=== PATIENT | female | born 1940 | race Caucasian/White ===

== ENCOUNTER 2018-10-18 17:28 | Emergency (ER) | payer MEDICARE ==
--- OUTSIDE RECORDS SUMMARY | 2018-10-18 17:54 | XMS REPORT | Continuity of Care Document ---
:1940 External Reference #:[id number] Author Name Nancy Ruiz Care Team Providers Name Role Phone Shivani Mahmood MD Primary Care Physician Unavailable Payers Date Identification Numbers Payment Provider Subscriber Effective: 2006 Policy Number: [id number] Medicare Marissa Mejias PayID: [id number] [address] [place] [address] Policy Number: [id number] [facility] Marissa Mejias Group Name: MX Supplement [address] PayID: [id number] [place] [address] Problems Active Problems Provider Date Rheumatoid arthritis Eugene Helm M.D. Onset: 01/15/2012 Medications [employer] (Current) Use Encounter Eugene Helm M.D. Onset: Taking medication MAD[address] Lane Onset: 05/08/2014 Rheumatoid arthritis of multiple joints MADELA[address] Lane Onset: 04/12/2015 Social History Type Date Description Comments Sex Unknown Tobacco Use Start: Unknown current cigarette smoker Smoking Status Reviewed: 09/24/18 current cigarette smoker ETOH Use Denies alcohol use Tobacco Use Start: Unknown Patient is a current smoker, smokes every day Allergies, Adverse Reactions, Alerts Active Allergies Reaction Severity Comments Date Penicillin 07/14/2010 Medications Active Medications SIG Qnty Indications Ordering Date Provider Cetirizine HCL Take One Tablet By 30tabs T78.40xA Issa Figueroa, 2016 Mouth Once Daily In PHYSICIAN EXECUTIVE 10mg Tablets The Evening Folic Acid 1 by mouth every day 90tabs Z79.899 Issa Figueroa, 01/20/2015 1mg PHYSICIAN EXECUTIVE Tablets Enbrel Sureclick inject 1 pen (50 mg) 3.92units Z79.899 Issa Bloomk, 03/2015 subcutaneously once PHYSICIAN EXECUTIVE 50mg/ml Solution every other week Auto-Inject M06.89 Methotrexate take 6 tablets by 72tabs M06.89 [facility], PHYSICIAN EXECUTIVE 01/01/2015 2.5mg Tablets mouth every week Z79.899 Hydrocodone-Acetaminophen 1 tab by 60tabs M06.89 [facility], 08/12/2014 5-325mg Tablets mouth two PHYSICIAN EXECUTIVE times daily as needed for pain M54.5 Arabella [employer] C[employer] 2 tbls in water [facility] Henry, 08/11/2014 Vinegar daily PHYSICIAN EXECUTIVE Fluticasone Propionate Use One [place](S) 16units J30.9 [facility] 50mcg/Act In Each Nostril PHYSICIAN EXECUTIVE Suspension Once Daily as Needed Voltaren apply 5 grams 5tubes M06.89 [facility] 10/23/2011 1% Gel topically four PHYSICIAN EXECUTIVE times a day Amlodipine Besylate once daily Blegen, 5mg Tablets MD Shivani Metamucil Free & Natural 1 tablespoon twice Unknown Powder a day mixed w/ water Hydroxychloroquine Sulfate take one tablet by 180tabs M06.89 [facility] , 200mg mouth twice daily PHYSICIAN EXECUTIVE Tablets Z79.899 [place] 3 1 po qd. 30caps Unknown 1000mg Capsules Multi-Day Unknown Tablets Vitamin D-1000 Maximum 2000iu/day Unknown Strength [id number] Tablets Vitamin B Complex follow directions on bottle, 1monthss Unknown Tablets take daily. (minimum of 50 mg of thiamine per day) Bystolic 1 tab po qd 90tabs Unknown 5mg Tablets History Medications Azithromycin take 2 tabs on day 6tabs magdaleno Figueroa, 03/13/2017 - 250mg one and 1 tabs PHYSICIAN EXECUTIVE 09/04/2017 Tablets daily for 4 days Guaifenesin-Codeine take 10 milliliters 118ml R05 [facility] 2015 - by mouth every PHYSICIAN EXECUTIVE 08/01/2016 100-10mg/5ML evening with plenty Solution of water for cough for 7 days as needed Zyrtec Allergy take one tablet by 30caps T78.40xA Issa Figueroa, 2014 - 10mg mouth in the [facility] 01/27/2017 Capsules evening Methotrexate 8 tbs by mouth 714.0 Issa Bloomk, 10/02/2014 - 2.5mg every week on Hold [facility] 11/18/2014 Tablets V58.69 Hydrocodone/Acetaminophen 500-300 1 tab by 714.0 Issa Bloomk, 2014 - MG mouth every 6 [facility] 08/12/2014 - 8 hours as needed V58.69 Prednisone take 4 tablets 70tabs Issa Figueroa, 06/30/2014 - 5mg Tablets once daily for 1 [facility] 08/11/2014 week 3 tablets once daily for 1 week 2 tablets once daily for 1 week then 1 tablet once daily Fexofenadine HCL take one tablet 30units 477.9 Issa Figueroa, 05/08/2014 - 60mg by mouth twice a [facility] 08/11/2014 day as needed Methotrexate 6 tabs 1x per 72tabs 714.0 Issa Bloomk, 01/16/2014 - 2.5mg week [facility] 10/02/2014 Tablets V58.69 Naprosyn twice daily with 180tabs 714.0 Issa Bloomk, 01/16/2014 - 500mg food as needed [facility] 11/18/2014 Tablets V58.69 Folic Acid 1 by mouth every 90tabs V58.69 Issa Figueroa, 01/16/2014 - 1mg day [facility] 11/18/2014 Tablets Prednisone 4 qd x 1 week, 3 70tabs 714.0 Eugene Helm, 01/15/2012 - 5mg qd x 1 week, 2 qd M.D. 07/23/2012 Tablets x 1 week, 1 qd x 1 week Humira Pen SQ Injection Every 2units Eugene Helm, 04/12/2011 - 2 Weeks M.D. 10/23/2011 40mg/0.8ML Kit Flonase 1 intranasal puff 1units Eugene Helm, 03/27/2011 - 50mcg/Act to each nostril M.D. 04/18/2013 Suspension daily Humira Pen SQ Injection Every 2units Eugene Helm, 10/03/2010 - 2 Weeks M.D. 03/27/2011 40mg/0.8ML Kit Naprosyn 1 tab po edi prn 60tabs 714.0 Zsofia Henry, 07/14/2010 - 500mg PHYSICIAN EXECUTIVE 01/16/2014 Tablets V58.69 Hydrocodone/Acetaminophen take 1 tab 60tabs 714.0 Zsofia 07/14/2010 - 7.5-500mg Tablets by mouth Henry, [facility] 08/12/2014 twice a day as needed V58.69 Methotrexate take 3 tablets 96tabs 714.0 Malofia Henry, 06/21/2010 - 2.5mg by mouth once a [facility] 01/16/2014 Tablets week V58.69 Losartan Potassium 1 po qd 90tabs Unknown - 50mg 06/24/2018 Tablets Bee Venum And Snake Oil apply qd prn Unknown - Oint 04/12/2015 Ointment Pravastatin Sodium Shivani Mahmood, - 20mg MD 02/09/2017 Tablets Immunizations CPT Code Status Date Vaccine Reaction Lot # [id number] Given 02/09/2017 Influenza Virus Vaccine, no immediate reaction, [id number] Quadrivalent, Split, pt tolerated well Preservative Free 43542 Given 04/12/2015 Influenza Virus Vaccine, [id number] Quadrivalent, Split, Preservative Free 32166 Given 09/23/2014 Pneumococcal Conjugate Vaccine 13 Valent For Intramuscular Use [id number] Given 01/16/2014 Fluvirin Im 3Yrs And Older 61387 Given 04/18/2013 Flu Vaccine Split Virus 1345 4p Preservative Free For Indiv 3Yr Older 54970 Given 02/20/2011 Pneumonia Vaccine Vital Signs Date Vital Result Comment 09/24/2018 1:34pm Height 63 inches 5'3" Weight 135.50 lb Heart Rate 81 /min BP Systolic Sitting 142 mmHg BP Diastolic Sitting 88 mmHg O2 % BldC Oximetry 96 % BMI (Body Mass Index) 24.0 kg/m2 06/25/2018 2:26pm Height 63 inches 5'3" Weight 142.50 lb Heart Rate 72 /min BP Systolic Sitting 140 mmHg BP Diastolic Sitting 82 mmHg Respiratory Rate 14 /min Body Temperature 98.6 F Pain Level 4 BMI (Body Mass Index) 25.2 kg/m2 03/19/2018 12:50pm Height 63 inches 5'3" Weight 143.00 lb Heart Rate 64 /min BP Systolic Sitting 146 mmHg BP Diastolic Sitting 88 mmHg Pain Level 5 O2 % BldC Oximetry 97 % BMI (Body Mass Index) 25.3 kg/m2 12/11/2017 1:47pm Height 63 inches 5'3" Weight 141.00 lb Heart Rate 64 /min BP Systolic Sitting 151 mmHg BP Diastolic Sitting 81 mmHg Respiratory Rate 14 /min Pain Level 6 BMI (Body Mass Index) 25.0 kg/m2 09/04/2017 12:48pm Height 63 inches 5'3" Weight 145.12 lb Heart Rate 64 /min BP Systolic Sitting 132 mmHg BP Diastolic Sitting 82 mmHg Pain Level 6 O2 % BldC Oximetry 95 % BMI (Body Mass Index) 25.7 kg/m2 05/15/2017 12:57pm Height 63 inches 5'3" Weight 147.00 lb Heart Rate 76 /min BP Systolic Sitting 136 mmHg BP Diastolic Sitting 76 mmHg Respiratory Rate 14 /min Pain Level 2 BMI (Body Mass Index) 26.0 kg/m2 02/09/2017 12:43pm Height 63 inches 5'3" Weight 146.00 lb Heart Rate 72 /min BP Systolic 126 mmHg BP Diastolic 70 mmHg Respiratory Rate 14 /min Pain Level 4 BMI (Body Mass Index) 25.9 kg/m2 11/07/2016 1:55pm Height 63 inches 5'3" Weight 149.00 lb Heart Rate 69 /min BP Systolic Sitting 132 mmHg BP Diastolic Sitting 73 mmHg Body Temperature 97.5 F Pain Level 3 BMI (Body Mass Index) 26.4 kg/m2 08/01/2016 1:26pm Height 63 inches 5'3" Weight 152.00 lb Heart Rate 63 /min BP Systolic Sitting 120 mmHg BP Diastolic Sitting 70 mmHg Body Temperature 98.0 F Pain Level 2 BMI (Body Mass Index) 26.9 kg/m2 04/11/2016 2:29pm Height 63 inches 5'3" Weight 157.12 lb Heart Rate 80 /min BP Systolic Sitting 120 mmHg BP Diastolic Sitting 80 mmHg Respiratory Rate 14 /min Body Temperature 96.5 F Pain Level 3 BMI (Body Mass Index) 27.8 kg/m2 12/24/2015 12:58pm Weight 159.38 lb Heart Rate 80 /min BP Systolic Sitting 110 mmHg BP Diastolic Sitting 70 mmHg Respiratory Rate 14 /min Pain Level 3 10/13/2015 1:18pm Weight 161.12 lb Heart Rate 62 /min BP Systolic Sitting 110 mmHg BP Diastolic Sitting 80 mmHg Respiratory Rate 14 /min Pain Level 2 07/13/2015 2:24pm Weight 161.00 lb Heart Rate 60 /min BP Systolic Sitting 110 mmHg BP Diastolic Sitting 80 mmHg Respiratory Rate 14 /min Pain Level 2 04/12/2015 12:54pm Weight 156.00 lb Heart Rate 60 /min BP Systolic Sitting 142 mmHg BP Diastolic Sitting 82 mmHg Body Temperature 98.0 F O2 % BldC Oximetry 96 % 11/18/2014 1:07pm Height 63 inches 5'3" Weight 154.12 lb Heart Rate 72 /min BP Systolic Sitting 168 mmHg BP Diastolic Sitting 78 mmHg Pain Level 4 BMI (Body Mass Index) 27.3 kg/m2 10/02/2014 1:30pm Height 63 inches 5'3" Weight 157.00 lb Heart Rate 70 /min BP Systolic Sitting 146 mmHg BP Diastolic Sitting 80 mmHg Pain Level 8 BMI (Body Mass Index) 27.8 kg/m2 08/11/2014 12:57pm Height 63 inches 5'3" Weight 156.50 lb Heart Rate 72 /min BP Systolic Sitting 130 mmHg BP Diastolic Sitting 78 mmHg Pain Level 2 BMI (Body Mass Index) 27.7 kg/m2 05/08/2014 1:51pm Height 63 inches 5'3" Weight 158.50 lb Heart Rate 72 /min BP Systolic Sitting 112 mmHg BP Diastolic Sitting 66 mmHg Pain Level 7 BMI (Body Mass Index) 28.1 kg/m2 01/16/2014 11:18am Height 63 inches 5'3" Weight 154.00 lb Heart Rate 66 /min BP Systolic Sitting 130 mmHg BP Diastolic Sitting 62 mmHg Pain Level 3 BMI (Body Mass Index) 27.3 kg/m2 10/07/2013 2:17pm Height 63 inches 5'3" Weight 152.75 lb Heart Rate 76 /min BP Systolic Sitting 116 mmHg BP Diastolic Sitting 62 mmHg Pain Level 2 BMI (Body Mass Index) 27.1 kg/m2 07/15/2013 1:25pm Height 63 inches 5'3" Weight 156.00 lb Heart Rate 62 /min BP Systolic Sitting 122 mmHg BP Diastolic Sitting 80 mmHg BMI (Body Mass Index) 27.6 kg/m2 04/18/2013 2:22pm Height 63 inches 5'3" Weight 155.00 lb Heart Rate 76 /min BP Systolic Sitting 146 mmHg BP Diastolic Sitting 74 mmHg BMI (Body Mass Index) 27.5 kg/m2 01/24/2013 1:43pm Height 63 inches 5'3" Weight 154.00 lb Heart Rate 67 /min BP Systolic Sitting 122 mmHg BP Diastolic Sitting 60 mmHg BMI (Body Mass Index) 27.3 kg/m2 10/24/2012 1:06pm Height 63 inches 5'3" Heart Rate 74 /min BP Systolic Sitting 120 mmHg BP Diastolic Sitting 61 mmHg 07/23/2012 1:03pm Height 63 inches 5'3" Weight 163.00 lb Heart Rate 71 /min BP Systolic Sitting 121 mmHg BP Diastolic Sitting 74 mmHg BMI (Body Mass Index) 28.9 kg/m2 04/16/2012 1:12pm Weight 163.00 lb Heart Rate 76 /min BP Systolic 142 mmHg BP Diastolic 80 mmHg 01/15/2012 2:31pm Height 62.5 inches 5'2.50" Heart Rate 71 /min BP Systolic Sitting 122 mmHg BP Diastolic Sitting 66 mmHg 10/23/2011 1:03pm Height 62.5 inches 5'2.50" Weight 158.00 lb Heart Rate 68 /min BP Systolic Sitting 127 mmHg BP Diastolic Sitting 69 mmHg BMI (Body Mass Index) 28.4 kg/m2 06/19/2011 1:07pm Height 62.5 inches 5'2.50" Weight 172.00 lb Heart Rate 70 /min BP Systolic Sitting 114 mmHg BP Diastolic Sitting 70 mmHg BMI (Body Mass Index) 31.0 kg/m2 03/27/2011 1:22pm Height 62.5 inches 5'2.50" Weight 174.00 lb Heart Rate 62 /min BP Systolic Sitting 130 mmHg BP Diastolic Sitting 78 mmHg BMI (Body Mass Index) 31.3 kg/m2 12/28/2010 1:04pm Weight 173.00 lb Heart Rate 74 /min BP Systolic 150 mmHg BP Diastolic 80 mmHg 10/03/2010 2:19pm Height 62 inches 5'2" Weight 170.00 lb Heart Rate 68 /min BP Systolic 120 mmHg BP Diastolic 70 mmHg BMI (Body Mass Index) 31.1 kg/m2 07/14/2010 2:07pm Height 62 inches 5'2" Weight 174.00 lb Heart Rate 76 /min BP Systolic 150 mmHg BP Diastolic 80 mmHg BMI (Body Mass Index) 31.8 kg/m2 Results Test Date Facility Test Result H/L Range Note Comp Metabolic Panel 09/12/2016 [facility] Sodium 139 mmol/L N 133-[address] [place] [address] [phone] Potassium 4.2 mmol/L N 3.5-5.0 Chloride 106 mmol/L N 101-111 Co2 Carbon Dioxide 28 mmol/L N 22-32 Anion Gap 5 mmol/L N 2-11 Glucose 83 mg/dL N 70-100 Blood Urea Nitrogen 25 mg/dL High 6-24 Creatinine 0.75 mg/dL N 0.51-0.95 BUN/Creatinine Ratio 33.3 High 8-20 Calcium 9.2 mg/dL N 8.6-10.3 Total Protein 6.9 g/dL N 6.4-8.9 Albumin 4.2 g/dL N 3.2-5.2 Globulin 2.7 g/dL N 2-4 Albumin/Globulin Ratio 1.6 N 1-3 Total Bilirubin 0.60 mg/dL N 0.2-1.0 Alkaline Phosphatase 61 U/L N 34-104 Alt 11 U/L N 7-52 Ast 17 U/L N 13-39 Egfr Non- 75.5 N >60 Egfr 97.1 N >60 1 Lipid Profile 09/12/2016 [facility] Triglycerides 74 mg/dL N 2 (Trig/Chol/HDL) [address] [place] [address] [phone] Cholesterol 155 mg/dL N 3 HDL Cholesterol 38.9 mg/dL N 4 LDL Cholesterol 101 mg/dL N 5 Laboratory test 09/12/2016 [facility] Hemoglobin A1c 5.6 % N Less than [address] (Glyco HGB) 6.0 [place] [address] [phone] Laboratory test 09/22/2015 [facility] Hemoglobin A1c 5.7 % N Less than [address] (Glyco HGB) 6.[address] [place] [address] [phone] Comp Metabolic 09/22/2015 [facility] Sodium 139 N 133-[address] mmol/[place] [address] [phone] Potassium 4.3 mmol/L N 3.5-5.0 Chloride 106 mmol/L N 101-111 Co2 Carbon Dioxide 28 mmol/L N 22-32 Anion Gap 5 mmol/L N 2-11 Glucose 77 mg/dL N 70-100 Blood Urea Nitrogen 18 mg/dL N 6-24 Creatinine 0.70 mg/dL N 0.51-0.95 BUN/Creatinine Ratio 25.7 High 8-20 Calcium 9.7 mg/dL N 8.6-10.3 Total Protein 7.1 g/dL N 6.4-8.9 Albumin 4.1 g/dL N 3.2-5.2 Globulin 3.0 g/dL N 2-4 Albumin/Globulin Ratio 1.4 N 1-3 Total Bilirubin 0.60 mg/dL N 0.2-1.0 Alkaline Phosphatase 64 U/L N 34-104 Alt 15 U/L N 7-52 Ast 19 U/L N 13-39 Egfr Non- 82.0 N >60 Egfr 105.5 N >60 8 Lipid Profile 09/22/2015 [facility] Triglycerides 112 mg/dL N 9 (Trig/Chol/HDL) [address] [place] [address] [phone] Cholesterol 161 mg/dL N 10 HDL Cholesterol 35.6 mg/dL N 11 LDL Cholesterol 103 mg/dL N 12 Laboratory test 09/22/2015 [facility] C Reactive 1.37 mg/L N < 5.00 [address] [place] [address] [phone] Vitamin B12 479 pg/mL N 180-914 14 Vitamin D Total 25(Oh) 42.0 ng/mL N 30-50 15 CBC Auto Diff 09/22/2015 [facility] White Blood 7.7 10^3/uL N 3.5-10.[address] [place] [address] [phone] Red Blood Count 4.49 10^6/uL N 4.0-5.4 Hemoglobin 14.3 g/dL N 12.0-16.0 Hematocrit 43 % N 35-47 Mean Corpuscular Volume 96 fL N 80-97 Mean Corpuscular Hemoglobin 32 pg High 27-31 Mean Corpuscular HGB Conc 33 g/dL N 31-36 Red Cell Distribution Width 16 % High 10.5-15 Platelet Count 176 10^3/uL N 150-450 Mean Platelet Volume 10 um3 N 7.4-10.4 Abs Neutrophils 4.6 10^3/uL N 1.5-7.7 Abs Lymphocytes 2.1 10^3/uL N 1.0-4.8 Abs Monocytes 0.7 10^3/uL N 0-0.8 Abs Eosinophils 0.2 10^3/uL N 0-0.6 Abs Basophils 0 10^3/uL N 0-0.2 Abs Nucleated RBC 0 10^3/uL N Granulocyte % 59.9 % N 38-83 Lymphocyte % 27.9 % N 25-47 Monocyte % 9.3 % High 1-9 Eosinophil % 2.4 % N 0-6 Basophil % 0.5 % N 0-2 Nucleated Red Blood Cells % 0 N Laboratory test 09/22/2015 [facility] Erythrocyte Sed 26 mm/Hr N 0-40 [address] [place] [address] [phone] Quantiferon Gold 01/05/2015 [facility] M tuberculosis Negative N Negative TB [address] [place] [address] [phone] Tuberculosis Antigen Value -0.02 IU/mL N 17 CBC With Manual Diff 10/07/2013 White Blood Count 8.1 10^3/uL N 4.8- 10.8 Red Blood Count 3.82 10^6/uL Low 4.0-5.4 Hemoglobin 11.8 g/dL Low 12.0-16.0 Hematocrit 35 % N 35-47 Mean Corpuscular Volume 92 fL N 80-97 Mean Corpuscular Hemoglobin 31 pg N 27-31 Mean Corpuscular HGB Conc 34 g/dL N 31-36 Red Cell Distribution Width 15 % N 10.5-15 Platelet Count 346 10^3/uL N 150-450 Mean Platelet Volume 9 um3 N 7.4-10.4 Abs Neutrophils 4.3 10^3/uL N 1.5-7.7 Abs Lymphocytes 2.7 10^3/uL N 1.0-4.8 Abs Monocytes 0.7 10^3/uL N 0-0.8 Abs Eosinophils 0.2 10^3/uL N 0-0.6 Abs Basophils 0.1 10^3/uL N 0-0.2 Abs Nucleated RBC 0.01 10^3/uL N Neutrophil % 59 % N 38-83 Lymphocytes % 36 % N 25-47 Monocytes % 3 % N 0-13 Eosinophils % 2 % N 0-6 RBC Morphology Normal N Normal Comp Metabolic Panel 10/07/2013 Sodium 139 mmol/L N 133-145 Potassium 4.3 mmol/L N 3.7-5.6 Chloride 107 mmol/L N 101-111 Co2 Carbon Dioxide 28 mmol/L N 22-32 Anion Gap 4 mmol/L N 2-11 Glucose 87 mg/dL N 70-100 Blood Urea Nitrogen 16 mg/dL N 6-24 Creatinine 0.67 mg/dL N 0.51-0.95 BUN/Creatinine Ratio 23.9 High 8-20 Calcium 9.2 mg/dL N 8.6-10.3 Total Protein 6.8 g/dL N 6.4-8.9 Albumin 3.7 g/dL N 3.2-5.2 Globulin 3.1 g/dL N 2-4 Albumin/Globulin Ratio 1.2 N 1-3 Total Bilirubin 0.60 mg/dL N 0.2-1.0 Alkaline Phosphatase 94 U/L N 34-104 Alt 17 U/L N 7-52 Ast 14 U/L N 13-39 Egfr Non- 86.8 N >60 Egfr 111.6 N >60 18 Laboratory test finding 10/07/2013 C Reactive Protein 11.42 mg/L High < 5.00 19 Erythrocyte Sed Rate 84 mm/Hr High 0-40 Urinalysis Profile 10/07/2013 Urine Color Ivis N Urine Appearance Cloudy N Urine Specific Festus 1.014 N 1.010-1.030 Urine pH 6.0 N 5-9 Urine Urobilinogen Negative N Negative Urine Ketones Negative N Negative Urine Protein Negative N Negative Urine Leukocytes Negative N Negative Urine Blood Negative N Negative * * Abnormal Negative 20 Urine Nitrite Negative N Negative Urine Bilirubin Negative N Negative Urine Glucose Negative N Negative Urine White Blood Cell 1+(<3/hpf) Abnormal Absent Urine Red Blood Cell 1+(<3/hpf) Abnormal Absent Urine Bacteria Absent N Absent Urine Squamous Epithelial Cell Present Abnormal Absent Urine Hyaline Casts Present Abnormal Absent Laboratory test 10/07/2013 Debbie (Anti-Nuclear Negative N Negative finding AB) Screen CMP Panel 07/10/2012 [facility] Albumin <pending> [address] [place] [address] [phone] Alt - SGPT <pending> Calcium <pending> Carbon Dioxide <pending> Chloride <pending> Creatinine <pending> Glucose Serum <pending> Alkaline Phosphatase <pending> Potassium <pending> Protien Total <pending> Sodium <pending> Ast - Sgot <pending> BUN - Urea Nitrogen <pending> CBC W/Manual Diff 07/10/2012 [facility] White Blood <pending> [address] [place] [address] [phone] RBC Red Blood Count <pending> Hemoglobin <pending> Hematocrit <pending> MCV (Corpuscular Volume) <pending> MCH (Corpuscular Hemoglobin) <pending> MCHC (Corpuscular Hemog Conc) <pending> RDW <pending> Platelet Count <pending> MPV <pending> Neutrophils <pending> Bands <pending> Lymphocytes <pending> Monocytes <pending> Eosinophils <pending> Basophils <pending> Absolute Basophil <pending> Absolute Eosinophil <pending> Absolute Lymphocyte <pending> Absolute Monocytes <pending> Absolute Neutrophils <pending> Laboratory test 07/10/2012 [facility] Esr Sedimentation <pending> finding [address] [place] [address] [phone] CRP C-Reactive Protein <pending> 1 Because ethnic data is not always readily available, this report includes an eGFR for both -Americans and non- Americans. The National Kidney Disease Education Program (NKDEP) does not endorse the use of the MDRD equation for patients that are not between the ages of 18 and 70, are , have extremes of body size, muscle mass, or nutritional status, or are non- or non-. According to the National Kidney Foundation, irrespective of diagnosis, the stage of the disease is based on the level of kidney function: Stage Description GFR(mL/min/1.73 m(2)) 1 Kidney damage with normal or decreased GFR 90 2 Kidney damage with mild decrease in GFR 60-89 3 Moderate decrease in GFR 30-59 4 Severe decrease in GFR 15-29 5 Kidney failure <15 (or dialysis) 2 Desirable <150 Borderline high 150-199 High 200-499 Very High >500 3 Desirable <200 Borderline high 200-239 High >239 4 Low <40 Desirable: 40-60 High: >60 5 Desirable: <100 mg/dL Near Optimal: 100-129 mg/dL Borderline High: 130-159 mg/dL High: 160-189 mg/dL Very High: >189 mg/dL 6 Therapeutic target for the treatment of diabetes Mellitus patients is <7% HBA1C, and in selective patients <6.0%.Please refer to [place] [employer] Diabetic care guidelines for further information. 7 Therapeutic target for the treatment of diabetes Mellitus patients is <7% HBA1C, and in selective patients <6.0%.Please refer to [place] [employer] Diabetic care guidelines for further information. 8 Because ethnic data is not always readily available, this report includes an eGFR for both -Americans and non- Americans. The National Kidney Disease Education Program (NKDEP) does not endorse the use of the MDRD equation for patients that are not between the ages of 18 and 70, are , have extremes of body size, muscle mass, or nutritional status, or are non- or non-. According to the National Kidney Foundation, irrespective of diagnosis, the stage of the disease is based on the level of kidney function: Stage Description GFR(mL/min/1.73 m(2)) 1 Kidney damage with normal or decreased GFR 90 2 Kidney damage with mild decrease in GFR 60-89 3 Moderate decrease in GFR 30-59 4 Severe decrease in GFR 15-29 5 Kidney failure <15 (or dialysis) 9 Desirable <150 Borderline high 150-199 High 200-499 Very High >500 10 Desirable <200 Borderline high 200-239 High >239 11 Low <40 Desirable: 40-60 High: >60 12 Desirable: <100 mg/dL Near Optimal: 100-129 mg/dL Borderline High: 130-159 mg/dL High: 160-189 mg/dL Very High: >189 mg/dL 13 Acute inflammation: >10.00 14 Normal Range 180 to 914 Indeterminate Range 145 to 180 Deficient Range <145 15 [id number] Copy Result to: [employer] ([id number]) 16 [id number] Copy Result to: [employer] ([id number]) 17 ADDITIONAL INFORMATION This is a qualitative test. The TB antigen IU/mL value is required for documentation on certain government reporting forms (e.g., Form I-693), but this value should not be used to monitor disease progression or response to therapy. Diagnosing or excluding tuberculosis disease, and assessing the probability of LTBI, require a combination of epidemiological, historical, medical, and diagnostic findings that should be taken into account when interpreting QuantiFERON-TB results. Test Performed by: [place] [address] [employer]oe Patternmaker: Jose De Jesus Molina II, M.D., Ph.D. 18 Because ethnic data is not always readily available, this report includes an eGFR for both -Americans and non- Americans. The National Kidney Disease Education Program (NKDEP) does not endorse the use of the MDRD equation for patients that are not between the ages of 18 and 70, are , have extremes of body size, muscle mass, or nutritional status, or are non- or non-. According to the National Kidney Foundation, irrespective of diagnosis, the stage of the disease is based on the level of kidney function: Stage Description GFR(mL/min/1.73 m(2)) 1 Kidney damage with normal or decreased GFR 90 2 Kidney damage with mild decrease in GFR 60-89 3 Moderate decrease in GFR 30-59 4 Severe decrease in GFR 15-29 5 Kidney failure <15 (or dialysis) 19 Acute inflammation: >10.00 20 *Ascorbic acid is present which may interfere with detection of blood. Procedures Date Code Description Status 04/17/2017 [id number] Bone Mineral Density Test Completed 11/22/2015 [id number] Mammogram Completed 11/16/2014 [id number] Bone Mineral Density Test Completed Encounters Type Date Location Provider Dx Diagnosis Office Visit 06/25/2018 Rheumatology Monaminesh Bloomk, M06.89 Other specified 2:[facility] PHYSICIAN EXECUTIVE rheumatoid arthritis, multiple sites M85.9 Disorder of bone density and structure, unspecified Z79.899 Other manager intermediate (current) drug therapy F17.210 Nicotine dependence, cigarettes, uncomplicated H53.2 Diplopia M85.89 Oth disrd of bone density and structure, multiple sites Office Visit 03/19/2018 1:00p Rheumatology Zsofia M06.89 Other specified Services Of [facility] VASQUEZ FigueroaP rheumatoid arthritis, multiple sites M85.9 Disorder of bone density and structure, unspecified Z79.899 Other manager intermediate (current) drug therapy Office Visit 12/11/2017 2:00p Rheumatology Zsofia M06.89 Other specified Services Of [facility] Henry PHYSICIAN EXECUTIVE rheumatoid arthritis, multiple sites M85.9 Disorder of bone density and structure, unspecified M54.5 Low back pain Z79.899 Other manager intermediate (current) drug therapy M85.80 Oth disrd of bone density and structure, unspecified site Office Visit 09/04/2017 1:00p Rheumatology Zsofia M06.89 Other specified Services [facility] Henry [facility] rheumatoid arthritis, multiple sites M85.9 Disorder of bone density and structure, unspecified F17.210 Nicotine dependence, cigarettes, uncomplicated Z79.899 Other manager intermediate (current) drug therapy G47.33 Obstructive sleep apnea (adult) (pediatric) R53.83 Other fatigue M85.89 Oth disrd of bone density and structure, multiple sites Office Visit 05/15/2017 1:30p Rheumatology Zsofia M06.89 Other specified Services Of [facility] VASQUEZ FigueroaP rheumatoid arthritis, multiple sites M85.9 Disorder of bone density and structure, unspecified F17.210 Nicotine dependence, cigarettes, uncomplicated Z79.899 Other penitentiary (current) drug therapy E78.5 Hyperlipidemia, unspecified R13.10 Dysphagia, unspecified M85.80 Oth disrd of bone density and structure, unspecified site Office Visit 02/09/2017 1:00p Rheumatology Zsofia M06.89 Other specified Services [facility] Henry [facility] rheumatoid arthritis, multiple sites M85.9 Disorder of bone density and structure, unspecified F17.210 Nicotine dependence, cigarettes, uncomplicated I73.00 Raynaud's syndrome without gangrene E78.5 Hyperlipidemia, unspecified Z79.899 Other manager intermediate (current) drug therapy Z23 Encounter for immunization M85.89 Oth disrd of bone density and structure, multiple sites Office Visit 11/07/2016 2:00p Rheumatology Zsofia M06.89 Other specified Services [facility] VASQUEZ FigueroaP rheumatoid arthritis, multiple sites M54.5 Low back pain M85.9 Disorder of bone density and structure, unspecified F17.210 Nicotine dependence, cigarettes, uncomplicated Z79.899 Other penitentiary (current) drug therapy Office Visit 08/01/2016 1:30p Rheumatology Zsofia M06.89 [facility] rheumatoid arthritis, multiple sites M85.9 Disorder of bone density and structure, unspecified F17.210 Nicotine dependence, cigarettes, uncomplicated Z79.899 Other penitentiary (current) drug therapy Office Visit 04/11/2016 2:30p Rheumatology Zsofia M06.89 Other specified Services [facility] Henry [facility] rheumatoid arthritis, multiple sites M85.9 Disorder of bone density and structure, unspecified F17.210 Nicotine dependence, cigarettes, uncomplicated Z79.899 Other manager intermediate (current) drug therapy R05 Cough Office Visit 12/24/2015 1:00p Rheumatology Zsofia M06.89 Other [facility] rheumatoid arthritis, multiple sites M85.9 Disorder of bone density and structure, unspecified F17.210 Nicotine dependence, cigarettes, uncomplicated J30.9 Allergic rhinitis, unspecified Z79.899 Other manager intermediate (current) drug therapy Office Visit 10/13/2015 1:30p Rheumatology Zsofia M06.89 Other [facility] rheumatoid arthritis, multiple sites R76.8 Other specified abnormal immunological findings in serum R21 Rash and other nonspecific skin eruption M85.9 Disorder of bone density and structure, unspecified F17.210 Nicotine dependence, cigarettes, uncomplicated Z79.899 Other penitentiary (current) drug therapy Office Visit 07/13/2015 2:30p Rheumatology Zsofia M06.89 Other [facility] rheumatoid arthritis, multiple sites T78.40xA Allergy, unspecified, initial encounter M85.9 Disorder of bone density and structure, unspecified Z79.899 Other manager intermediate (current) drug therapy F17.210 Nicotine dependence, cigarettes, uncomplicated J30.9 Allergic rhinitis, unspecified M85.88 Oth disrd of bone density and structure, other site Office Visit 04/12/2015 1:00p Rheumatology Issa M06.89 Other specified Services Of [facility] PHYSICIAN EXECUTIVE rheumatoid arthritis, multiple sites M85.9 Disorder of bone density and structure, unspecified T78.40xA Allergy, unspecified, initial encounter Z79.899 Other penitentiary (current) drug therapy Z23 Encounter for immunization M85.88 Oth disrd of bone density and structure, other site J30.9 Allergic rhinitis, unspecified 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, multiple sites Office Visit 11/18/2014 1:00p Rheumatology Issa Figueroa 714.0 Rheumatoid Services Of [facility] Arthritis V58.69 Medications Fci (Current) Use Encounter Office Visit 10/02/2014 1:30p Rheumatology Issa Figueroa 714.0 Rheumatoid Services Of [facility] Arthritis 733.90 Bone & Cartilage Disorder Unspec 305.1 Tobacco Use Disorder 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 [employer] (Current) Use Encounter Office Visit 08/11/2014 1:00p Rheumatology Issa Figueroa 714.0 [facility] 305.1 Tobacco Use Disorder 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 [employer] (Current) Use Encounter 733.90 Bone & Cartilage Disorder Unspec Office Visit 05/08/2014 2:00p Rheumatology Issa Figueroa, 714.0 [facility] 305.1 Tobacco Use Disorder V58.69 Medications Fci (Current) Use Encounter 477.9 Rhinitis Allergic Cause Unspec Office Visit 01/16/2014 11:30a Rheumatology Issa Figueroa 714.0 [facility] 305.1 Tobacco Use Disorder V58.69 Medications Fci (Current) Use Encounter V04.81 Need For Prophylactic Vaccination & Inoculation/Influenza Office Visit 10/07/2013 2:00p Rheumatology Issa Figueroa 714.0 Rheumatoid Services Of [facility] Arthritis 305.1 Tobacco Use Disorder 733.00 Osteoporosis Unspec 790.6 Abnormal Blood Chemistry Other 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 [employer] (Current) Use Encounter Office Visit 07/15/2013 2:00p Rheumatology Issa Figueroa 714.0 Rheumatoid Services Of [facility] Arthritis 305.1 Tobacco Use Disorder 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 (Current) Use Encounter Office Visit 04/18/2013 2:20p Rheumatology Issa Figueroa, 714.0 Rheumatoid Services [facility] PHYSICIAN EXECUTIVE Arthritis V58.69 Medications Fci (Current) Use Encounter 733.00 Osteoporosis Unspec 305.1 Tobacco Use Disorder V04.81 Need For Prophylactic Vaccination & Inoculation/Influenza 780.93 Memory Loss Office Visit 01/24/2013 1:40p Rheumatology Issa Figueroa, 714.0 Rheumatoid Services [facility] PHYSICIAN EXECUTIVE Arthritis 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 [employer] (Current) Use Encounter 733.00 Osteoporosis Unspec Office Visit 10/24/2012 1:00p Rheumatology Issa Figueroa, 714.0 Rheumatoid Services [facility] PHYSICIAN EXECUTIVE Arthritis V58.69 Medications Fci (Current) Use Encounter Office Visit 07/23/2012 1:00p Rheumatology Issa Figueroa, 714.0 Rheumatoid Services [facility] PHYSICIAN EXECUTIVE Arthritis 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 (Current) Use Encounter Office Visit 04/16/2012 1:00p Rheumatology Eugene Helm, 714.0 Rheumatoid Services Of [employer] M.D. Arthritis 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 [employer] (Current) Use Encounter Office Visit 01/15/2012 2:40p Rheumatology Eugene Helm, 714.0 Rheumatoid Services Of [employer] M.D. Arthritis V58.69 Medications Fci (Current) Use Encounter Office Visit 10/23/2011 1:00p Rheumatology Eugene Helm, 714.0 Rheumatoid Services Of [employer] M.D. Arthritis V58.69 Medications Fci (Current) Use Encounter Office Visit 06/19/2011 1:00p Rheumatology Eugene Helm, 714.0 Rheumatoid Services Of [employer] M.D. Arthritis V58.69 Medications Fci (Current) Use Encounter 461.9 Sinusitis Acute Unspec Office Visit 03/27/2011 1:20p Rheumatology Eugene Helm, 714.0 Rheumatoid Services Of [employer] M.D. Arthritis V58.69 Medications Fci (Current) Use Encounter Office Visit 12/28/2010 1:00p Rheumatology Eugene Helm, 714.0 Rheumatoid Services Of [employer] M.D. Arthritis 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 [employer] (Current) Use Encounter Office Visit 10/03/2010 2:20p Rheumatology Eugene Helm, 714.0 Rheumatoid Services Of [employer] M.D. Arthritis 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 [employer] (Current) Use Encounter Office Visit 07/14/2010 2:00p Rheumatology Eugene Helm, 714.0 Rheumatoid Services Of [employer] M.D. Arthritis 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 (Current) Use Encounter Office Visit 02/02/2009 1:30p Neurosurgery Vinicio Harrington 724.6 Sacral Disorder Services Of Jazmyn Gibbs M.D. 440.9 Atherosclerosis Generalized & Unspec 305.1 Tobacco Use Disorder Plan of Treatment Future Appointment(s):12/31/2018 1:00 pm - MAD[address] Lane at [facility]09/24/2018 - VASQUEZ LanePM06.89 Other specified rheumatoid arthritis, multiple sitesComments:Your arthritis seems to be clinically well controlled at this time.The symptoms of rheumatoid arthritis seems to be well controlled at this time.Please continue on present dose of Enbrel.Please, continue with the MTX and HCQContinue with regular blood tests. Refills sent to your pharmacy.Please call the office if you develop any sign or symptoms of infection or acute change in your health.Follow up:3 month labs prior Please request lab results sent from Mandeep. She had lab last week.M85.9 Disorder of bone density and structure, [id number] Nicotine dependence, cigarettes, [id number] Other penitentiary (current) drug therapy
[2018-10-18] MEDS ORDERED: ceFUROXime TAB(*) 250 MG PO ONE (19:34)
--- NOTE | 2018-10-18 19:34 | ED ---
Complex/Multi-Sys Presentation - HPI Summary HPI Summary: Patient is a 77 y/o F presenting to ED with complaints of rash and pruritus. The patient states that this past week, she had a rash at her right knee and felt fatigued, which led to her getting evaluated for Lyme disease. She reports that she was diagnosed with Lyme Disease three days ago and was started on Doxycycline, BID. She states that she had taken two days worth of dosages. Patient initially experienced some relief in Sx the first day she started taking antibiotics but reports that afterwards, she experienced a worsening rash along with pruritus. She decided to stop taking the doxycycline. Patient is unsure exactly when she stopped but is certain it has been more than 24 hours since her last dose. At this time, patient reports that pruritus and rash has lessened since stopping doxycycline. She denies Hx of hives. PMHx of HTN. Patient is a non-smoker, denies substance and alcohol usage. On triage, pain is denied, nothing is noted to aggravate/alleviate Sx. Home medications and allergies are reviewed. - History Of Current Complaint Chief Complaint: EDAllergicReaction Time Seen by Provider: 10/18/18 19:21 Hx Obtained From: Patient Onset/Duration: Lasting Days, Still Present, Resolved - after she stopped taking doxycycline Timing: Constant Severity Currently: None Aggravating Factor(s): nothing Alleviating Factor(s): nothing Associated Signs And Symptoms: Positive: Other - rash, pruritus - Allergies/Home Medications Allergies/Adverse Reactions: Allergies Allergy/AdvReac Type Severity Reaction Status Date / Time doxycycline Allergy Hives Verified 10/18/18 19:37 Penicillins Allergy Swelling Verified 10/18/18 17:35 PMH/Surg Hx/FS Hx/Imm Hx Cardiovascular History: Reports: Hx Hypertension History: Reports: Other Problems/Disorders - chronic kidney disease - Surgical History Surgery Procedure, Year, and Place: cholecystectomy Infectious Disease History: No Infectious Disease History: Denies: Traveled Outside the [place] in Last 30 Days - Family History Known Family History: Negative: Cardiac Disease, Hypertension, Diabetes - Social History Alcohol Use: None Substance Use Type: Reports: None Smoking Status (MU): Never Smoked Tobacco Review of Systems Negative: Fever - on vitals, temp is 99.8 F Skin: Other - positive - pruritus Positive: Rash All Other Systems Reviewed And Are Negative: Yes Physical Exam - Summary Physical Exam Summary: Appearance: Well-appearing, Well-nourished, lying in bed comfortably Skin: Warm, dry; scattered urticarial lesions on arms and legs Eyes: sclera anicteric, no conjunctival pallor ENT: mucous membranes moist, pharynx appears normal Neck: Supple, nontender Respiratory: Clear to auscultation, no signs of respiratory distress Cardiovascular: Normal S1, S2. No murmurs. Normal distal pulses in tibial and radial bilaterally. Abdomen: Soft, nontender, normal active bowel sounds present Musculoskeletal: Normal, Strength/ROM Intact Neurological: A&Ox3, awake and alert, mentation is normal, speech is fluent and appropriate Psychiatric: affect is normal, does not appear anxious or depressed Triage Information Reviewed: Yes Vital Signs On Initial Exam: Initial Vitals Temp Pulse Resp BP Pulse Ox 99.8 F 92 18 180/110 98 10/18/18 17:29 10/18/18 17:29 10/18/18 17:29 10/18/18 17:29 10/18/18 17:29 Vital Signs Reviewed: Yes Diagnostics - Vital Signs Vital Signs Temp Pulse Resp BP Pulse Ox 10/18/18 19:15 71 157/73 97 10/18/18 19:14 80 98 10/18/18 17:29 99.8 F 92 18 180/110 98 - Laboratory Lab Statement: Any lab studies that have been ordered have been reviewed, and results considered in the medical decision making process. Complex Multi-Symp Course/Dx Course Of Treatment: Patient is a 77 y/o F presenting to ED with complaints of rash and pruritus. The patient states that this past week, she had a rash at her right knee and felt fatigued, which led to her getting evaluated for Lyme disease. She reports that she was diagnosed with Lyme Disease three days ago and was started on Doxycycline, BID. She states that she had taken two days worth of dosages. Patient initially experienced some relief in Sx the first day she started taking antibiotics but reports that afterwards, she experienced a worsening rash along with pruritus. She decided to stop taking the doxycycline. Patient is unsure exactly when she stopped but is certain it has been more than 24 hours since her last dose. At this time, patient reports that pruritus and rash has lessened since stopping doxycycline. She denies Hx of hives. PMHx of HTN. Patient is a non-smoker, denies substance and alcohol usage. On physical exam, scattered urticarial lesions on arms and legs is noted. Due to patient's apparent reaction to doxycycline, patient was started on Ceftin, and given 500 mg PO in ED. She was discharged to home and advised to notify her PCP and pharmacist about her reaction. Patient is agreeable with this. - Diagnoses Provider Diagnoses: Lyme disease, Urticaria Discharge - Sign-Out/Discharge Documenting (check all that apply): Patient Departure - discharge Patient Received Moderate/Deep Sedation with Procedure: No - Discharge Plan Condition: Stable Disposition: HOME Prescriptions: ceFUROXime TAB(*) [Ceftin TAB 250 MG(*)] 500 mg PO BID 12 Days #24 tab Patient Education Materials: Lyme Disease (ED), Urticaria (ED) Referrals: Shivani Mahmood MD [Primary Care Provider] - If Needed Additional Instructions: Contact your doctor's office on Sunday to let them know about the apparent reaction to doxycycline and the change to cefuroxime, so they can keep your chart up to date. I would also mention to your pharmacist about the doxycycline. - Billing Disposition and Condition Condition: STABLE Disposition: Home - Attestation Statements Document Initiated by Olivae: Yes Documenting Scribe: BOBO KIRKLAND Provider For Whom Agustin is Documenting (Include Credential): CONRADO COSTELLO MD Scribe Attestation: I, BOBO KIRKLAND, scribed for CONRADO COSTELLO MD on 10/19/18 at 0527. Scribe Documentation Reviewed: Yes Provider Attestation: The documentation as recorded by the BOBO smith accurately reflects the service I personally performed and the decisions made by me, CONRADO COSTELLO MD Status of Scribe Document: Viewed
[2018-10-18 20:02] VITALS: BP 160/85
== END 2018-10-18 19:48 | disposition home or self-care (01) ==
LOC: ED 17:28
DX: A69.20 Lyme disease, unspecified (principal); T36.4X5A Adverse effect of tetracyclines, initial encounter; Y92.9 Unspecified place or not applicable; Z88.0 Allergy status to penicillin
CPT/HCPCS: 99282

== ENCOUNTER 2019-03-23 15:49 | Emergency (ER) | payer MEDICARE ==
--- NOTE | 2019-03-23 17:06 | ED ---
Abdominal Pain/Female - HPI Summary HPI Summary: Patient complains of left flank pain, increased urinary frequency 1.5 weeks. Left flank pain occasionally radiates to left side lower abdomen. Pain is intermittent, sometimes worse with eating, sometimes worse with bowel movement. Denies pain with urination or blood in urine. States history of fall onto left side 2 weeks ago with subsequent left hip and left shoulder pain. This pain started 4 days after fall. Prior history of kidney stone. No active flank pain at this time. Shoulder pain 06/09. Patient was not evaluated for fall 2 weeks ago. Denies fever, cough, sore throat, CP, SOB, N/V/D, change in BM, vaginal symptoms. Medical history is HTN, HDL, RA. Gums surgical history is cholecystectomy, total hysterectomy. - History of Current Complaint Chief Complaint: EDFlankPain Stated Complaint: LOW BACK/FLANK PAIN PER PT Time Seen by Provider: 03/23/19 16:36 Hx Obtained From: Patient, Family/Director Instrumentation Onset/Duration: Gradual Onset, Lasting Days Timing: Intermittent Episode Lasting Severity Initially: Moderate Severity Currently: None Pain Intensity: 0 Pain Scale Used: 0-10 Numeric Location: Discrete At: LLQ, Flank Radiates: No Character: Sharp Aggravating Factor(s): Food, Movement Alleviating Factor(s): Spontaneous Resolution Associated Signs and Symptoms: Positive: Urinary Symptoms Allergies/Adverse Reactions: Allergies Allergy/AdvReac Type Severity Reaction Status Date / Time doxycycline Allergy Hives Verified 03/23/19 15:56 Penicillins Allergy Swelling Verified 03/23/19 15:56 PMH/Surg Hx/FS Hx/Imm Hx Endocrine/Hematology History: Denies: Hx Diabetes Cardiovascular History: Reports: Hx Hypertension History: Reports: Other Problems/Disorders - chronic kidney disease Sensory History: Denies: Hx Eye Prosthesis Opthamlomology History: Denies: Hx Legally Blind EENT History: Denies: Hx Deafness Psychiatric History: Denies: Hx Autism - Surgical History Surgery Procedure, Year, and Place: cholecystectomy - Immunization History Immunizations Up to Date: Yes Infectious Disease History: No Infectious Disease History: Denies: Traveled Outside the [place] in Last 30 Days - Family History Known Family History: Negative: Cardiac Disease, Hypertension, Diabetes - Social History Alcohol Use: None Substance Use Type: Reports: None Smoking Status (MU): Heavy Every Day Tobacco Smoker Review of Systems Constitutional: Negative Eyes: Negative ENT: Negative Cardiovascular: Negative Respiratory: Negative Positive: Abdominal Pain Positive: frequency, flank pain Musculoskeletal: Negative Skin: Negative Neurological: Negative Psychological: Normal All Other Systems Reviewed And Are Negative: Yes Physical Exam - Summary Physical Exam Summary: Abdomen soft nontender. No CVA tenderness bilaterally. No pain with palpation of left lateral chest wall along ribs. No pain with palpation of left hip. Normal flexion and extension of bilateral lower extremities at hip without pain. Mild pain with palpation of left superior shoulder. PMS intact distally. No ecchymosis, erythema, deformity, swelling noted to left clavicle or left shoulder. Triage Information Reviewed: Yes Vital Signs On Initial Exam: Initial Vitals Temp Pulse Resp BP Pulse Ox 99.2 F 86 16 161/99 97 03/23/19 15:51 03/23/19 15:51 03/23/19 15:51 03/23/19 15:51 03/23/19 15:51 Vital Signs Reviewed: Yes Appearance: Positive: Well-Appearing Skin: Positive: Warm Head/Face: Positive: Normal Head/Face Inspection Eyes: Positive: Normal Neck: Positive: Supple Respiratory/Lung Sounds: Positive: Clear to Auscultation Cardiovascular: Positive: Normal Abdomen Description: Positive: Nontender Musculoskeletal: Positive: Normal Neurological: Positive: Normal Psychiatric: Positive: Normal AVPU Assessment: Alert - Brandie Coma Scale Best Eye Response: 4 - Spontaneous Best Motor Response: 6 - Obeys Commands Best Verbal Response: 5 - Oriented Coma Scale Total: 15 Procedures - Sedation Patient Received Moderate/Deep Sedation with Procedure: No Diagnostics - Vital Signs Vital Signs Temp Pulse Resp BP Pulse Ox 03/23/19 15:51 99.2 F 86 16 161/99 97 - Laboratory Result Diagrams: 03/23/19 17:31 03/23/19 17:31 Lab Statement: Any lab studies that have been ordered have been reviewed, and results considered in the medical decision making process. Abdominal Pain Fem Course/Dx - Course Course Of Treatment: Patient complains of left flank pain, increased urinary frequency 1.5 weeks. Left flank pain occasionally radiates to left side lower abdomen. Pain is intermittent, sometimes worse with eating, sometimes worse with bowel movement. Denies pain with urination or blood in urine. States history of fall onto left side 2 weeks ago with subsequent left hip and left shoulder pain. This pain started 4 days after fall. Prior history of kidney stone. No active flank pain at this time. Shoulder pain 2/. Patient was not evaluated for fall 2 weeks ago. Denies fever, cough, sore throat, CP, SOB, N/V/D, change in BM, vaginal symptoms. Medical history is HTN, HDL, RA. Gums surgical history is cholecystectomy, total hysterectomy. Vital signs within normal limits. Labs unremarkable. Urine negative. CT abdomen and pelvis positive for left hydronephrosis with no obstructing lesion or calculus. Follow -up with urology. - Diagnoses Provider Diagnoses: Hydronephrosis, left Discharge ED - Sign-Out/Discharge Documenting (check all that apply): Patient Departure - Discharge Plan Condition: Stable Disposition: HOME Prescriptions: Oxycodone HCl 5 mg PO TID 3 Days #9 tablet MDD 3 tabs Patient Education Materials: Hydronephrosis (ED) Referrals: Shivani Mahmood MD [Primary Care Provider] - Bib Ayers MD [Medical Doctor] - Additional Instructions: Follow-up with urology Dr. Ayers for further evaluation. Return to the ED for any new or worsening symptoms including inability to urinate. - Billing Disposition and Condition Condition: STABLE Disposition: Home - Attestation Statements Provider Attestation: I was available for consult. This patient was seen by the ZHANG. The patient was not presented to, seen by, or examined by me. Jared Torres MD
[2019-03-23 17:37] LABS: ABS Eosinophils 0.1 10^3/ul (0-0.6); ABS Monocytes 0.5 10^3/ul (0-0.8); ABS Neutrophils 3.7 10^3/ul (1.5-7.7); Eosinophil % 2.3 %; Hematocrit 39 % (35-47); Mean Corpuscular HGB Conc 34 g/dL (31-36); Mean Corpuscular Hemoglobin 33 pg (27-31); Mean Corpuscular Volume 98 fL (80-97); Mean Platelet Volume 9.2 fL (7.4-10.4); Platelet Count 176 10^3/uL (150-450); Red Blood Count 3.94 10^6 /uL (3.70-4.87); Red Cell Distribution Width 16 % (10-15); White Blood Count 6.4 10^3/uL (3.5-10.8)
[2019-03-23 17:51] LABS: Albumin 3.8 g/dL (3.2-5.2); Anion Gap 6 mmol/L (2-11); CO2 Carbon Dioxide 28 mmol/L (22-32); Calcium 9.4 mg/dL (8.6-10.3); Chloride 108 mmol/L (101-111); Potassium 3.7 mmol/L (3.5-5.0); Sodium 142 mmol/L (135-145)
[2019-03-23 17:57] LABS: ALT 16 U/L (7-52); AST 20 U/L (13-39); Albumin/Globulin Ratio 1.2 (1-3); Alkaline Phosphatase 73 U/L (34-104); BUN/Creatinine Ratio 23.6 (8-20); Blood Urea Nitrogen 21 mg/dL (6-24); C Reactive Protein 4.58 mg/L (<8.01); EGFR African American 74.4 (>60); EGFR Non-African American 61.5 (>60); Globulin 3.1 g/dL (2-4); Glucose 101 mg/dL (70-100); Total Protein 6.9 g/dL (6.4-8.9)
[2019-03-23] MEDS ORDERED: Iohexol 300* (CONTRAST) 10 ML SDV IV ONE (18:02)
[2019-03-23 19:40] VITALS: BP 160/90
[2019-03-23 20:04] LABS: Urine Appearance Clear; Urine Bilirubin Negative (Negative); Urine Blood Negative (Negative); Urine Color Yellow; Urine Glucose Negative (Negative); Urine Ketones Trace (Negative); Urine Nitrite Negative (Negative); Urine Protein Negative (Negative); Urine Specific Gravity 1.041 (1.010-1.030); Urine Urobilinogen Negative (Negative)
[2019-03-23] MEDS ORDERED: oxyCODONE TAB* 5 MG TAB PO ONE (20:04)
== END 2019-03-23 20:20 | disposition home or self-care (01) ==
LOC: ED 15:49
DX: N13.30 Unspecified hydronephrosis (principal); K44.9 Diaphragmatic hernia without obstruction or gangrene; I12.9 Hypertensive chronic kidney disease with stage 1 through stage 4 chronic kidney disease, or unspecified chronic kidney disease; N18.9 Chronic kidney disease, unspecified; E78.5 Hyperlipidemia, unspecified; M06.9 Rheumatoid arthritis, unspecified; F17.200 Nicotine dependence, unspecified, uncomplicated; Z90.49 Acquired absence of other specified parts of digestive tract; Z90.710 Acquired absence of both cervix and uterus; Z87.442 Personal history of urinary calculi; Z88.1 Allergy status to other antibiotic agents; Z88.0 Allergy status to penicillin
CPT/HCPCS: 36415; 74177; 80053; 81003; 83690; 85025; 86140; 99282; A9270-GY; Q9967

== ENCOUNTER → 2019-03-26 06:06 | Day surgery (SDC) | payer MEDICARE ==
--- NOTE | 2019-03-25 13:42 | HP ---
CC: Dr. Shivani Mahmood; Dr. Bib Ayers ADMITTING HISTORY AND PHYSICAL: DATE OF ADMISSION: 03/26/19 ADMITTING DIAGNOSES: 1. Left hydronephrosis. 2. 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 PLANNED PROCEDURE: Cystoscopy, left retrograde, left ureteroscopy and balloon dilatation, and left s tent insertion. SURGEON: Dr. Ayers. HISTORY OF PRESENT ILLNESS: Marissa Mejias is a 78-year-old lady with about a 10 day history of left flank pain. The pain initially was intermittent, but is now becoming a little bit more frequent and initially was associated with vomiting. She went to the emergency department where a CT scan reveale d a moderate to severe left hydronephrosis. An ultrasound done in my office on 03/25/19 revealed per sistent left hydronephrosis with an absent left ureteral jet suggesting a complete obstruction of the left ureter and she is now being brought in for further evaluation and management. I discussed the options with her which included a left stent insertion and possible balloon dilatation versus conside ration of definitive treatment with left pyeloplasty and for the present, she opted for the less inva sive procedure of stent insertion and balloon dilatation. PAST MEDICAL HISTORY: Significant for: 1. Rheumatoid arthritis. 2. Hypertension. 3. High cholesterol. PAST SURGICAL HISTORY: Significant for hysterectomy and cholecystectomy. MEDICATIONS ON ADMISSION: 1. Folic acid 1 mg daily. 2. Enbrel 50 mg per mL, inject subcutaneously once every other week. 3. Methotrexate 2.5 mg 6 tablets once a week. 4. Hydroxychloroquine 200 mg twice a day. 5. Amlodipine 5 mg daily. 6. Pravastatin 20 mg daily. 7. Losartan potassium 50 mg daily. 8. ProAir 2 puffs every 4 hours as needed. 9. Supplements and vitamin. ALLERGIES AND INTOLERANCES: PENICILLIN and DOXYCYCLINE (not sure of reactions). FAMILY HISTORY: Negative for bladder or kidney cancer or for stones. SOCIAL HISTORY: Smoking history: She is a chronic long-term smoker with about a 60-pack year smokin g history. REVIEW OF SYSTEMS: She is otherwise in excellent health and is fairly active physically. She denies any chest pain or shortness of breath. There is no history of diabetes mellitus. She is alert and oriented. PHYSICAL EXAMINATION GENERAL: Reveals a pleasant lady. VITAL SIGNS: Blood pressure is 126/78, pulse 65 per minute and regular, temperature 98.5, oxygen sat uration 98% on room air. LUNGS: Clear bilaterally. CARDIOVASCULAR: Regular rate and rhythm. S1, S2. ABDOMEN: Soft with mild left flank tenderness. 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 PLAN: Left retrograde, left ureteroscopy, balloon dilatation and stent insertion. [id number]/[facility] #: [id number]
[~2019-03-26 06:06] MED LIST: Buffered Lidocaine 1% SYRIN* 1 ML/SYRINGE INTRADERM ONE; Dexamethasone IV* 4 MG/ML 1 ML (4 MG) ONE; DiMENhydriNATE IV* 50 MG/ML VIAL IV PUSH PRN; Furosemide IV* 10 MG/ML 2 ML VIAL (20 MG) ONE; Gentamicin ADULT (*) 120 MG in NS 0.9% 100 ML* 100 ML IVPB ONE; Iohexol 180 (CONTRAST) 10 ML SDV IV ONE; Lactated Ringers 1000 ML Bag* 1,000 ML IV SCH; Levofloxacin 500 MG IVPREMIX(* 500 MG/100 ML BAG IVPB ONE; Midazolam* 1 MG/ML 2 ML VIAL (2 MG) ONE; Naloxone* 0.4 MG/ML 1 ML VIAL IV PRN; Ondansetron INJ* 2 MG/ML VIAL IV PRN; Ondansetron INJ* 2 MG/ML VIAL ONE; Propofol* 10 MG/ML 20 ML BTL ONE; fentaNYL* 50 MCG/ML 2 ML VIAL (100 MCG VIAL) IV PRN; fentaNYL* 50 MCG/ML 2 ML VIAL (100 MCG VIAL) ONE
[2019-03-26 11:10] VITALS: BP 156/88
--- NOTE | 2019-03-26 19:56 | OP ---
CC: Dr. Shivani Mahmood * DATE OF OPERATION: 03/26/19 - [facility] DATE OF : 42 SURGEON: Bib Ayers MD. ANESTHESIOLOGIST: Dr. Hardin. ANESTHESIA: General. PRE-OP DIAGNOSES: 1. Left hydronephrosis. 2. Left ureteropelvic junction obstruction. POST-OP DIAGNOSES: 1. Left hydronephrosis. 2. Left ureteropelvic junction obstruction. OPERATIVE PROCEDURE: Cystoscope, left retrograde pyelogram, left ureteroscopy, balloon dilatation of left proximal ureter and ureteropelvic junction, and left stent insertion. COMPLICATIONS: None. STENT USED: 8-Khmer Santee stent left ureter. POSTOPERATIVE CONDITION: Stable. INDICATIONS: Marissa Mejias is a 78-year-old lady who was evaluated and noted to have persistent left hydronephrosis resulting in left flank pain. She is now being brought in for management of the same. OPERATIVE FINDINGS: 1. Small lesion adjacent to the left orifice (slightly raised irregular mucosa) . 2. Normal left distal mid and proximal ureter. 3. Fluoroscopic appearance consistent with left ureteropelvic junction obstruction with moderate to severe left hydronephrosis. DESCRIPTION OF PROCEDURE: After induction of general anesthesia, the patient was placed in dorsal lithotomy position. Sequential compression devices were in place and functioning. Initial cystoscopy revealed a normal-appearing bladder with normally located right and left ureteral orifices. Clear efflux was noted from the right orifice. There was no efflux noted from the left orifice suggesting a complete obstruction at this point. There was a small area adjacent to the left orifice where the mucosa was slightly raised and irregular. The remainder of the bladder was unremarkable. A guidewire was introduced into the left ureter. Retrograde pyelogram revealed moderate to severe left hydronephrosis with a significantly dilated renal pelvis. There was no evidence of any filling defects noted in the ureter. A 6- Khmer semi- rigid ureteroscope was introduced and advanced under direct vision. The entire distal, mid, and proximal ureter were visualized on the left side and appeared normal. I could advance the ureteroscope all the way to the level of the uretero-pelvic junction where I could visualize the narrowing and I did not attempt to introduce the ureteroscope beyond the narrowed area. The ureteroscope was carefully withdrawn under direct vision and balloon dilatation of the ureteropelvic junction and proximal left ureter was carried out under fluoroscopic monitoring. After successful balloon dilatation, an 8-Khmer Santee stent was introduced and positioned under fluoroscopy with good proximal and distal positioning obtained. A Guzman catheter was placed for temporary bladder drainage. The patient tolerated the procedure satisfactorily and was transferred back to the recovery area in stable condition. [id number]/[facility] #: [id number] MTDD
== END | disposition home or self-care (01) ==
LOC: OR 06:06
PROVIDERS: ATTEND Urology
DX: N13.1 Hydronephrosis with ureteral stricture, not elsewhere classified (principal); M06.9 Rheumatoid arthritis, unspecified; I10 Essential (primary) hypertension; E78.00 Pure hypercholesterolemia, unspecified; F17.210 Nicotine dependence, cigarettes, uncomplicated
CPT/HCPCS: 74420; C2625; J1100; J1580; J1940; J1956; J2250; J2405; J2704; J3010

== ENCOUNTER 2020-08-02 03:48 | Observation (INO) ==
[2020-08-02] MEDS ORDERED: NS 0.9% 1000 ml BAG 1,000 ML IV ONE (04:23)
[2020-08-02] MEDS ORDERED: Ondansetron 4 mg VIAL 2 MG/ML 2 ml VIAL IV ONE (04:24)
[2020-08-02 05:06] LABS: ABS Eosinophils 0.1 10^3/ul (0-0.6); ABS Lymphocytes 1.1 10^3/ul (1.0-4.8); ABS Monocytes 0.7 10^3/ul (0-0.8); ABS Neutrophils 6.3 10^3/ul (1.5-7.7); Eosinophil % 1.7 %; Hematocrit 40 % (35-47); Hemoglobin 13.6 g/dL (12.0-16.0); Lymphocyte % 12.8 %; Mean Corpuscular HGB Conc 34 g/dL (31-36); Mean Corpuscular Hemoglobin 33 pg (27-31); Mean Corpuscular Volume 98 fL (80-97); Mean Platelet Volume 9.4 fL (7.4-10.4); Platelet Count 177 10^3/uL (150-450); Red Blood Count 4.12 10^6 /uL (3.70-4.87); Red Cell Distribution Width 15 % (10-15); White Blood Count 8.3 10^3/uL (3.5-10.8)
[2020-08-02 05:21] LABS: Albumin 4.1 g/dL (3.2-5.2); Albumin/Globulin Ratio 1.3 (1-3); BUN/Creatinine Ratio 26.2 (8-20); C Reactive Protein 2.84 mg/L (<8.01); Calcium 9.3 mg/dL (8.6-10.3); EGFR African American 79.3 (>60); EGFR Non-African American 65.6 (>60); Globulin 3.1 g/dL (2-4); Potassium 3.7 mmol/L (3.5-5.0); Total Bilirubin 0.5 mg/dL (0.2-1.0); Total Protein 7.2 g/dL (6.4-8.9)
[2020-08-02 05:26] LABS: Urine Appearance Clear; Urine Bilirubin Negative (Negative); Urine Blood 1+ (Negative); Urine Color Straw; Urine Glucose Negative (Negative); Urine Ketones 1+ (Negative); Urine Nitrite Negative (Negative); Urine Protein 2+(100 mg/dL) (Negative); Urine Specific Gravity 1.012 (1.002-1.030); Urine Urobilinogen Negative (Negative)
[2020-08-02 05:38] LABS: Urine Bacteria Absent (Absent); Urine Red Blood Cell 2+(6-10/hpf) (Absent); Urine Squamous Epithelial Cell Present (Absent); Urine White Blood Cell Trace(0-5/hpf) (Absent)
[2020-08-02] MEDS ORDERED: Nicotine Lozenge mini 2 MG LOZNG.MINI MT ONE (09:00)
[2020-08-02] MEDS ORDERED: Nicotine Lozenge mini 2 MG LOZNG.MINI MT PRN (09:01)
[2020-08-02] MEDS ORDERED: Morphine 2 MG/ML SYRINGE IV PRN (09:04)
[2020-08-02] MEDS ORDERED: Prochlorperazine 5 mg/ml 2 ml VIAL (10 mg) IV PRN ×2 (09:05→10:52)
[2020-08-02] MEDS ORDERED: NS 0.9% 1000 ml BAG 1,000 ML IV SCH (09:15)
[2020-08-02 09:48] LABS: HDL Cholesterol 41.4 mg/dL
[2020-08-02] MEDS ORDERED: Nicotine PATCH 21 MG/24 HR PATCH TRANSDERM SCH (10:00)
[2020-08-02] MEDS ORDERED: Midazolam 2 mg/2 ml VIAL 1 mg/ml 2 ml VIAL (2 mg) ONE (10:01)
[2020-08-02] MEDS ORDERED: Levofloxacin 500 MG IVPREMIX 500 MG/100 ML BAG ONE (10:08)
[2020-08-02] MEDS ORDERED: Iohexol 180 (CONTRAST) 10 ML SDV IV ONE (10:36)
[2020-08-02] MEDS ORDERED: HYDROmorphone 1 MG/1 ML SYRINGE IV PRN (10:52)
[2020-08-02] MEDS ORDERED: diPHENhydraMINE IV 50 MG/ML 1 ml VIAL (BENADRYL) IV PRN (10:52)
[2020-08-02] MEDS ORDERED: Naloxone 0.4 mg VIAL 0.4 mg/ml 1 ml VIAL IV PRN (10:52)
[2020-08-02 14:55] VITALS: BP 177/83
[2020-08-02] MEDS ORDERED: Enoxaparin 40 MG/0.4 ML SYR SUBCUT SCH (21:00)
[2020-08-02] MEDS ORDERED: HYDROXYCHLOROQUINE SULFATE 200 MG PO SCH (21:00)
[2020-08-03] MEDS ORDERED: Cholecalciferol (VIT D3) 1,000 unit TAB PO SCH ×2 (09:00)
== END 2020-08-02 13:50 | disposition home or self-care (01) ==
LOC: SSU 03:48 → ED 03:48
PROVIDERS: ADMIT Hospitalist; ATTEND Hospitalist

== ENCOUNTER 2021-07-15 02:00 | Observation (INO) ==
[2021-07-15 02:21] LABS: ABS Eosinophils 0.4 10^3/ul (0-0.6); ABS Lymphocytes 3.2 10^3/ul (1.0-4.8); ABS Neutrophils 4.1 10^3/ul (1.5-7.7); Eosinophil % 4.7 %; Hematocrit 41 % (35-47); Hemoglobin 13.5 g/dL (12.0-16.0); Lymphocyte % 36.7 %; Mean Corpuscular HGB Conc 33 g/dL (31-36); Mean Corpuscular Hemoglobin 31 pg (27-31); Mean Corpuscular Volume 93 fL (80-97); Mean Platelet Volume 8.6 fL (7.4-10.4); Nucleated Red Blood Cells % 0.1; Platelet Count 190 10^3/uL (150-450); Red Blood Count 4.36 10^6 /uL (3.70-4.87); Red Cell Distribution Width 14 % (10-15); White Blood Count 8.7 10^3/uL (3.5-10.8)
[2021-07-15 02:39] LABS: INR 1.12 (0.86-1.15)
[2021-07-15] MEDS ORDERED: nitroGLYCERIN DRIP 25,000 MCG/250 ML BTL IV ONE (02:45)
[2021-07-15] MEDS ORDERED: nitroGLYCERIN DRIP (PHA MIX) 25,000 MCG/250 ML BAG IV ONE (03:05)
[2021-07-15 03:07] LABS: Albumin 3.8 g/dL (3.2-5.2); Calcium 8.9 mg/dL (8.6-10.3); Total Bilirubin 0.3 mg/dL (0.2-1.0)
[2021-07-15 03:13] LABS: Albumin/Globulin Ratio 1.2 (1-3); Globulin 3.2 g/dL (2-4)
[2021-07-15 03:49] LABS: High Sensitivity Troponin 1 Hr 9 pg/mL (<15)
[2021-07-15] MEDS ORDERED: Iohexol 350 (CONTRAST) 500 ML MDV IV ONE ×2 (04:25→14:05)
[2021-07-15] MEDS ORDERED: Nitro 2% OINT (Nitroglycerin) 1 INCH/PAK TOPICAL ONE (08:28)
[2021-07-15 14:14] LABS: C Reactive Protein 8.77 mg/L (<8.01)
[2021-07-15 15:32] LABS: Urine Appearance Clear; Urine Bilirubin Negative (Negative); Urine Blood Negative (Negative); Urine Color Yellow; Urine Glucose Negative (Negative); Urine Ketones Negative (Negative); Urine Nitrite Negative (Negative); Urine Protein Negative (Negative); Urine Specific Gravity 1.039 (1.002-1.030); Urine Urobilinogen Negative (Negative)
[2021-07-15] MEDS: Heparin 5000 UNITS/ML 1 mL VIAL SUBCUT SCH ×2 (16:53→22:39)
[2021-07-15] MEDS ORDERED: NS 0.9% 1000 ml BAG 1,000 ML IV ONE (20:30)
[2021-07-15 20:55] LABS: Magnesium 1.9 mg/dL (1.9-2.7)
[2021-07-15 20:59] LABS: ABS Eosinophils 0.2 10^3/ul (0-0.6); ABS Lymphocytes 1.8 10^3/ul (1.0-4.8); ABS Neutrophils 5.9 10^3/ul (1.5-7.7); Hematocrit 41 % (35-47); Hemoglobin 13.6 g/dL (12.0-16.0); Lymphocyte % 20.5 %; Mean Corpuscular HGB Conc 33 g/dL (31-36); Mean Corpuscular Hemoglobin 32 pg (27-31); Mean Corpuscular Volume 94 fL (80-97); Platelet Count 214 10^3/uL (150-450); Red Blood Count 4.34 10^6 /uL (3.70-4.87); Red Cell Distribution Width 15 % (10-15)
[2021-07-16] MEDS ORDERED: Enoxaparin 60 MG/0.6 ML SYR SUBCUT SCH ×2 (00:10→06:00)
[2021-07-16] MEDS ORDERED: Aspirin EC 81 mg TAB.EC (enteric coated) PO SCH (09:00)
[2021-07-16 09:12] LABS: ABS Eosinophils 0.2 10^3/ul (0-0.6); ABS Monocytes 0.9 10^3/ul (0-0.8); ABS Neutrophils 5.4 10^3/ul (1.5-7.7); Eosinophil % 2.9 %; Hematocrit 39 % (35-47); Hemoglobin 13.3 g/dL (12.0-16.0); Lymphocyte % 23.2 %; Mean Corpuscular HGB Conc 34 g/dL (31-36); Mean Corpuscular Hemoglobin 31 pg (27-31); Mean Corpuscular Volume 93 fL (80-97); Mean Platelet Volume 9.3 fL (7.4-10.4); Platelet Count 204 10^3/uL (150-450); Red Blood Count 4.24 10^6 /uL (3.70-4.87); Red Cell Distribution Width 14 % (10-15); White Blood Count 8.7 10^3/uL (3.5-10.8)
[2021-07-16 09:43] LABS: Calcium 8.9 mg/dL (8.6-10.3); HDL Cholesterol 42.6 mg/dL; Potassium 3.8 mmol/L (3.5-5.0); eGFR CKD-EPI 88.9 (>60)
[2021-07-16 13:24] LABS: Magnesium 1.9 mg/dL (1.9-2.7)
[2021-07-16 13:25] VITALS: BP 124/60
[2021-07-16 15:03] LABS: Erythrocyte Sed Rate 52 mm/Hr (0-29)
[2021-07-16] MEDS ORDERED: Enoxaparin 40 MG/0.4 ML SYR SUBCUT SCH (22:00)
== END 2021-07-16 15:45 | disposition home or self-care (01) ==
LOC: ED 02:00 → EDHOLD 02:00 → MEDTELE 19:31
PROVIDERS: ADMIT Internal Medicine; ATTEND Internal Medicine

== ENCOUNTER 2022-11-04 15:00 | Inpatient (IN) ==
[2022-11-04 16:44] LABS: ABS Monocytes 0.9 10^3/uL (0.0-0.9); ABS Neutrophils 17.3 10^3/uL (1.5-7.6); ABS Nucleated RBC 0.01 10^3/ul; Eosinophil % 0.1 %; Hematocrit 47.1 % (35-45); Hemoglobin 15.4 g/dL (11.5-14.3); Lymphocyte % 5.3 %; Mean Corpuscular Hemoglobin 29.6 pg (27-33); Mean Corpuscular Hgb Conc 32.7 g/dL (31-36); Mean Corpuscular Volume 90.3 fL (80-97); Mean Platelet Volume 9.3 fL (7.5-11.2); Platelet Count 225 10^3/uL (150-450); Red Blood Count 5.21 10^6/uL (3.63-4.92); Red Cell Distribution Width 15.4 % (12-17); White Blood Count 19.3 10^3/uL (3.8-11.8)
[2022-11-04] MEDS ORDERED: Labetalol IV 5 MG/ML 20 ml VIAL IV PUSH ONE ×2 (16:44→21:43)
[2022-11-04 16:54] LABS: Albumin 3.6 g/dL (3.2-5.2); CO2 Carbon Dioxide 17 mmol/L (22-32); Calcium 9.1 mg/dL (8.6-10.3); Chloride 104 mmol/L (101-111); Sodium 134 mmol/L (135-145)
[2022-11-04 17:01] LABS: ALT 20 U/L (7-52); Albumin/Globulin Ratio 0.9 (1-3); Alkaline Phosphatase 83 U/L (35-149); Blood Urea Nitrogen 39 mg/dL (6-24); C Reactive Protein 23.36 mg/L (<8.01); Creatinine, Serum 1.06 mg/dL (0.51-0.95); Globulin 4.1 g/dL (2-4); Glucose 134 mg/dL (70-100); Lipase 10 U/L (11.0-82.0); Total Protein 7.7 g/dL (6.4-8.9); eGFR CKD-EPI 52.8 (>60)
[2022-11-04] MEDS ORDERED: Iodixanol (CONTRAST) 320 MG/ML 100 ML SDV IV ONE ×2 (17:07→19:18)
[2022-11-04 17:09] LABS: Anion Gap 13 mmol/L (2-16)
[2022-11-04 17:16] LABS: Magnesium 2.1 mg/dL (1.9-2.7); Potassium 3.9 mmol/L (3.5-5.0)
[2022-11-04 18:08] LABS: High Sens Troponin Baseline 27 pg/mL (<15)
[2022-11-04] MEDS ORDERED: Nitro 2% OINT (Nitroglycerin) 1 INCH/PAK TOPICAL ONE (18:27)
[2022-11-04 18:32] LABS: INR 1.33 (0.88-1.18)
[2022-11-04 18:40] LABS: Urine Appearance Clear; Urine Bacteria 1+ (Absent); Urine Bilirubin Negative (Negative); Urine Blood Negative (Negative); Urine Color Yellow; Urine Glucose Negative (Negative); Urine Ketones Trace (Negative); Urine Nitrite Negative (Negative); Urine Protein 2+(100 mg/dL) (Negative); Urine Red Blood Cell 1+(3-5/hpf) (Absent); Urine Squamous Epithelial Cell Present (Absent); Urine Urobilinogen Negative (Negative); Urine White Blood Cell Trace(0-5/hpf) (Absent)
[2022-11-04 18:41] LABS: Urine Specific Gravity > 1.060 (1.002-1.030)
[2022-11-04 18:48] LABS: High Sensitivity Troponin 1 Hr 32 pg/mL (<15)
[2022-11-04] MEDS: NS 0.9% 1000 ml BAG 1,000 ML IV SCH (18:56)
[2022-11-04] MEDS ORDERED: Ondansetron 4 mg VIAL 2 MG/ML 2 ml VIAL IV PRN (23:20)
[2022-11-04] MEDS ORDERED: Enoxaparin 40 MG/0.4 ML SYR SUBCUT SCH (23:45)
[2022-11-05 06:00] LABS: ABS Basophils 0.1 10^3/uL (0.0-0.1); ABS Lymphocytes 1.6 10^3/uL (1.0-4.8); ABS Monocytes 1.3 10^3/uL (0.0-0.9); ABS Neutrophils 16.8 10^3/uL (1.5-7.6); ABS Nucleated RBC 0.02 10^3/ul; Eosinophil % 0.2 %; Hematocrit 39.5 % (35-45); Mean Corpuscular Hemoglobin 29.4 pg (27-33); Mean Corpuscular Hgb Conc 32.8 g/dL (31-36); Mean Corpuscular Volume 89.6 fL (80-97); Nucleated Red Blood Cells % 0.1 /100 WBC (0.0-0.4); Platelet Count 187 10^3/uL (150-450); Red Cell Distribution Width 15.2 % (12-17); White Blood Count 19.8 10^3/uL (3.8-11.8)
[2022-11-05 06:27] LABS: Calcium 8.6 mg/dL (8.6-10.3); Creatinine, Serum 0.89 mg/dL (0.51-0.95); HDL Cholesterol 35.3 mg/dL; Magnesium 1.9 mg/dL (1.9-2.7); Potassium 3.4 mmol/L (3.5-5.0); eGFR CKD-EPI 65.1 (>60)
[2022-11-05] MEDS ORDERED: Potassium Chlor 20 meq TAB.ER PO ONE (07:19)
[2022-11-05] MEDS: Aspirin EC 81 mg TAB.EC (enteric coated) PO SCH (08:59)
[2022-11-05] MEDS: NS 0.9% 1000 ml BAG 1,000 ML IV SCH (09:02)
[2022-11-06 04:50] LABS: Calcium 8.8 mg/dL (8.6-10.3); Potassium 3.6 mmol/L (3.5-5.0)
[2022-11-06 04:55] LABS: Creatinine, Serum 0.85 mg/dL (0.51-0.95); eGFR CKD-EPI 68.8 (>60)
[2022-11-06] MEDS: Enoxaparin 40 MG/0.4 ML SYR SUBCUT SCH (05:41)
[2022-11-06 06:05] LABS: ABS Basophils 0.1 10^3/uL (0.0-0.1); ABS Eosinophils 0.1 10^3/uL (0.0-0.5); ABS Lymphocytes 1.2 10^3/uL (1.0-4.8); ABS Monocytes 1.2 10^3/uL (0.0-0.9); ABS Neutrophils 17.5 10^3/uL (1.5-7.6); ABS Nucleated RBC 0.01 10^3/ul; Eosinophil % 0.4 %; Hematocrit 38.5 % (35-45); Hemoglobin 12.8 g/dL (11.5-14.3); Lymphocyte % 5.8 %; Mean Corpuscular Hgb Conc 33.3 g/dL (31-36); Mean Corpuscular Volume 90.3 fL (80-97); Mean Platelet Volume 9.5 fL (7.5-11.2); Platelet Count 210 10^3/uL (150-450); Red Blood Count 4.26 10^6/uL (3.63-4.92); Red Cell Distribution Width 15.6 % (12-17)
[2022-11-06] MEDS: Aspirin EC 81 mg TAB.EC (enteric coated) PO SCH (08:49)
[2022-11-06] MEDS: Nicotine PATCH 7 MG/24 HR PATCH TRANSDERM SCH (15:35)
[2022-11-07] MEDS: Enoxaparin 40 MG/0.4 ML SYR SUBCUT SCH (05:37)
[2022-11-07 06:11] LABS: ABS Basophils 0.1 10^3/uL (0.0-0.1); ABS Eosinophils 0.1 10^3/uL (0.0-0.5); ABS Lymphocytes 1.8 10^3/uL (1.0-4.8); ABS Monocytes 1.2 10^3/uL (0.0-0.9); ABS Neutrophils 13.2 10^3/uL (1.5-7.6); Eosinophil % 0.7 %; Hematocrit 38.9 % (35-45); Hemoglobin 13.2 g/dL (11.5-14.3); Lymphocyte % 11.1 %; Mean Corpuscular Hemoglobin 30.3 pg (27-33); Mean Corpuscular Hgb Conc 33.9 g/dL (31-36); Mean Corpuscular Volume 89.6 fL (80-97); Platelet Count 220 10^3/uL (150-450); Red Blood Count 4.34 10^6/uL (3.63-4.92); Red Cell Distribution Width 15.1 % (12-17); White Blood Count 16.5 10^3/uL (3.8-11.8)
[2022-11-07 06:32] LABS: Creatinine, Serum 0.72 mg/dL (0.51-0.95); Potassium 3.6 mmol/L (3.5-5.0); eGFR CKD-EPI 83.9 (>60)
[2022-11-07] MEDS: Nicotine PATCH 7 MG/24 HR PATCH TRANSDERM SCH (08:23)
[2022-11-07] MEDS: Aspirin EC 81 mg TAB.EC (enteric coated) PO SCH (08:23)
[2022-11-08] MEDS: Enoxaparin 40 MG/0.4 ML SYR SUBCUT SCH (05:39)
[2022-11-08 06:33] LABS: ABS Monocytes 1.3 10^3/uL (0.0-0.9); ABS Nucleated RBC 0.01 10^3/ul; Eosinophil % 0.2 %; Hematocrit 41.6 % (35-45); Hemoglobin 13.9 g/dL (11.5-14.3); Lymphocyte % 5.4 %; Mean Corpuscular Hemoglobin 30.2 pg (27-33); Mean Corpuscular Hgb Conc 33.4 g/dL (31-36); Mean Corpuscular Volume 90.6 fL (80-97); Mean Platelet Volume 9.4 fL (7.5-11.2); Platelet Count 259 10^3/uL (150-450); Red Blood Count 4.59 10^6/uL (3.63-4.92); White Blood Count 18.3 10^3/uL (3.8-11.8)
[2022-11-08 07:03] LABS: Calcium 9.4 mg/dL (8.6-10.3); Creatinine, Serum 0.76 mg/dL (0.51-0.95); Potassium 3.5 mmol/L (3.5-5.0); eGFR CKD-EPI 78.7 (>60)
[2022-11-08] MEDS: Aspirin EC 81 mg TAB.EC (enteric coated) PO SCH (10:57)
[2022-11-08] MEDS: Nicotine PATCH 7 MG/24 HR PATCH TRANSDERM SCH (10:57)
[2022-11-08] MEDS ORDERED: Aminophylline 25 MG/ML VIAL ONE (12:16)
[2022-11-08] MEDS ORDERED: Regadenoson 0.4 MG/5 ML SYRINGE ONE (12:16)
[2022-11-09] MEDS: Enoxaparin 40 MG/0.4 ML SYR SUBCUT SCH (05:53)
[2022-11-09 06:07] LABS: Hematocrit 41.4 % (35-45); Hemoglobin 13.9 g/dL (11.5-14.3); Mean Corpuscular Hemoglobin 29.8 pg (27-33); Mean Corpuscular Hgb Conc 33.6 g/dL (31-36); Mean Corpuscular Volume 88.7 fL (80-97); Mean Platelet Volume 8.9 fL (7.5-11.2); Platelet Count 279 10^3/uL (150-450); Red Blood Count 4.66 10^6/uL (3.63-4.92); Red Cell Distribution Width 15.5 % (12-17); White Blood Count 26.3 10^3/uL (3.8-11.8)
[2022-11-09 06:26] LABS: Calcium 9.4 mg/dL (8.6-10.3); Creatinine, Serum 0.8 mg/dL (0.51-0.95); Potassium 3.6 mmol/L (3.5-5.0)
[2022-11-09 07:20] LABS: ABS Basophils 0.1 10^3/uL (0.0-0.1); ABS Lymphocytes 1.5 10^3/uL (1.0-4.8); ABS Monocytes 1.5 10^3/uL (0.0-0.9); ABS Neutrophils 23.2 10^3/uL (1.5-7.6); ABS Nucleated RBC 0.03 10^3/ul; Lymphocyte % 5.7 %; Nucleated Red Blood Cells % 0.1 /100 WBC (0.0-0.4)
[2022-11-09] MEDS: Nicotine PATCH 7 MG/24 HR PATCH TRANSDERM SCH (12:15)
[2022-11-09] MEDS: Aspirin EC 81 mg TAB.EC (enteric coated) PO SCH (12:16)
[2022-11-10 07:26] LABS: Hematocrit 44.5 % (35-45); Hemoglobin 14.7 g/dL (11.5-14.3); Mean Corpuscular Hemoglobin 30.2 pg (27-33); Mean Corpuscular Volume 91.6 fL (80-97); Mean Platelet Volume 9.7 fL (7.5-11.2); Platelet Count 304 10^3/uL (150-450); Red Blood Count 4.86 10^6/uL (3.63-4.92); Red Cell Distribution Width 15.9 % (12-17); White Blood Count 25.1 10^3/uL (3.8-11.8)
[2022-11-10 07:27] LABS: ABS Lymphocytes 0.3 10^3/uL (1.0-4.8); ABS Monocytes 1.3 10^3/uL (0.0-0.9); ABS Neutrophils 23.5 10^3/uL (1.5-7.6); ABS Nucleated RBC 0.02 10^3/ul; Lymphocyte % 1.3 %; Nucleated Red Blood Cells % 0.1 /100 WBC (0.0-0.4)
[2022-11-10 07:46] LABS: Calcium 9.6 mg/dL (8.6-10.3); Creatinine, Serum 1.7 mg/dL (0.51-0.95); Potassium 4.2 mmol/L (3.5-5.0); eGFR CKD-EPI 29.9 (>60)
[2022-11-10 10:02] LABS: Hematocrit 43.6 % (35-45); Mean Corpuscular Hemoglobin 30.3 pg (27-33); Mean Corpuscular Volume 94.7 fL (80-97); Mean Platelet Volume 9.6 fL (7.5-11.2); Platelet Count 233 10^3/uL (150-450); Red Cell Distribution Width 16.6 % (12-17); White Blood Count 22.2 10^3/uL (3.8-11.8)
[2022-11-10 10:23] LABS: Albumin/Globulin Ratio 0.9 (1-3); Calcium 9.4 mg/dL (8.6-10.3); Creatinine, Serum 1.94 mg/dL (0.51-0.95); Globulin 3.4 g/dL (2-4); Magnesium 2.8 mg/dL (1.9-2.7); Total Protein 6.4 g/dL (6.4-8.9); eGFR CKD-EPI 25.6 (>60)
[2022-11-10] MEDS ORDERED: Lactated Ringers 1000 ml BAG 1,000 ML IV ONE ×2 (10:43→10:47)
[2022-11-10 10:50] LABS: ABS Lymphocytes 0.4 10^3/uL (1.0-4.8); ABS Monocytes 1.3 10^3/uL (0.0-0.9); ABS Neutrophils 20.4 10^3/uL (1.5-7.6); ABS Nucleated RBC 0.03 10^3/ul; Eosinophil % 0.1 %; Nucleated Red Blood Cells % 0.1 /100 WBC (0.0-0.4)
[2022-11-10] MEDS ORDERED: Heparin 5000 UNITS/ML 1 mL VIAL SUBCUT SCH (11:00)
[2022-11-10] MEDS: Enoxaparin 40 MG/0.4 ML SYR SUBCUT SCH (11:06)
[2022-11-10] MEDS: Nicotine PATCH 7 MG/24 HR PATCH TRANSDERM SCH (11:07)
[2022-11-10] MEDS: Aspirin EC 81 mg TAB.EC (enteric coated) PO SCH (11:11)
[2022-11-10] MEDS ORDERED: Dextrose 50% Syringe 50 ml 25 GM/50 ML SYRINGE IV PUSH PRN (11:12)
[2022-11-10 11:30] LABS: PCO2 Arterial <20 mmHg (35-45); PO2 Arterial 126 mmHg (80-100)
[2022-11-10] MEDS: fentaNYL 100 mcg/2 ml 50 MCG/ML VIAL IV SLOW PU PRN ×2 (11:51→13:07)
[2022-11-10 12:18] LABS: Urine Appearance Cloudy; Urine Bilirubin Negative (Negative); Urine Blood Negative (Negative); Urine Color Amber; Urine Glucose Negative (Negative); Urine Ketones Negative (Negative); Urine Nitrite Negative (Negative); Urine Protein 2+(100 mg/dL) (Negative); Urine Urobilinogen Negative (Negative)
[2022-11-10 12:22] LABS: Urine Bacteria Absent (Absent); Urine Red Blood Cell 1+(3-5/hpf) (Absent); Urine Squamous Epithelial Cell Present (Absent); Urine White Blood Cell Trace(0-5/hpf) (Absent)
[2022-11-10 12:50] LABS: Activated Partial Thrombo Time 40.6 seconds (26.0-38.0); INR 2.14 (0.88-1.18)
[2022-11-10] MEDS ORDERED: Lidocaine 1% VIAL 10 MG/ML VIAL 30 ML ONE (13:56)
[2022-11-10] MEDS ORDERED: fentaNYL 100 mcg/2 ml 50 MCG/ML VIAL IV SLOW PU ONE (14:21)
[2022-11-10] MEDS ORDERED: Norepinephrine 16MCG/ML BAGD5W 4,000 MCG/250 ML BAG IV ONE (15:59)
[2022-11-10] MEDS ORDERED: Norepinephrine 16MCG/ML BAGD5W 4,000 MCG/250 ML BAG IV SCH (16:00)
[2022-11-10] MEDS ORDERED: Albumin Human 5% 0 GM/0 ML BTL IV ONE (16:01)
[2022-11-10] MEDS ORDERED: fentaNYL 250 mcg/5 ml 50 MCG/ML 5 ml VIAL (250 MCG) ONE (16:01)
[2022-11-10] MEDS ORDERED: Propofol 10 MG/ML 20 ML BTL ONE (16:01)
[2022-11-10] MEDS ORDERED: Bupivacaine 0.25% SDV 30 ML ONE (16:01)
[2022-11-10] MEDS ORDERED: Rocuronium 50 mg VIAL 10 mg/ml 5 ml VIAL (50 mg) ONE ×2 (16:01)
[2022-11-10] MEDS ORDERED: Etomidate 20 mg/10 ml 2 MG/ML 10 ml VIAL ONE (16:01)
[2022-11-10] MEDS ORDERED: Lidocaine 2% PF 5 ML VIAL ONE (16:01)
[2022-11-10] MEDS ORDERED: Norepinephrine IV 1 MG/ML 4 ML VIAL ONE (16:07)
[2022-11-10] MEDS ORDERED: Ketamine HCL 50 mg/ml 10 ml VIAL (500 MG) ONE (16:09)
[2022-11-10] MEDS ORDERED: Sterile Water for Inj 10 ML ONE (16:11)
[2022-11-10] MEDS ORDERED: Succinylcholine 200 mg VIAL 20 mg/ml 10 ml VIAL (200 mg) ONE (16:16)
[2022-11-10] MEDS: metroNIDAZOLE IV 500 MG/100ML 500 MG/100 ML BAG IVPB SCH ×2 (16:45→18:28)
[2022-11-10 16:57] VITALS: BP 89/48
[2022-11-10] MEDS ORDERED: Midazolam 2 mg/2 ml VIAL 1 mg/ml 2 ml VIAL (2 mg) ONE (17:25)
[2022-11-10] MEDS ORDERED: HYDROmorphone 0.5 MG/0.5 ML SYRINGE ONE (17:26)
[2022-11-10 17:28] LABS: Calcium 9.4 mg/dL (8.6-10.3); Creatinine, Serum 2.13 mg/dL (0.51-0.95); eGFR CKD-EPI 22.8 (>60)
[2022-11-10 17:35] LABS: Potassium 6.2 mmol/L (3.5-5.0)
[2022-11-10] MEDS ORDERED: Morphine 4 MG/ML VIAL (1 ml) IV ONE (18:04)
[2022-11-10] MEDS ORDERED: LORazepam 2 mg VIAL 1 ml IV PUSH ONE (18:05)
[2022-11-10] MEDS ORDERED: Lorazepam PYXIS KEY PRN (18:05)
[2022-11-10] MEDS ORDERED: Morphine 4 MG/ML VIAL (1 ml) ONE (18:07)
[2022-11-10] MEDS ORDERED: LORazepam 2 mg VIAL 1 ml ONE (18:08)
== END 2022-11-10 18:41 | disposition expired | DRG 853 ==
LOC: EDHOLD 15:00 → ED 15:00 → SUATTDRO 21:52 → EDHOLD 11-06 11:35 → MED 11-06 12:24 → ICU 11-10 09:10
PROVIDERS: ADMIT Internal Medicine; ATTEND Internal Medicine